=== PATIENT | female | born 2000 | race Asian ===

== ENCOUNTER 2021-11-18 23:51 | Emergency (ER) | payer OTHER ==
[~2021-11-18] VITALS: Ht 162.6 cm; Wt 68.2 kg
[2021-11-18 23:55] VITALS: BP 105/71
[2021-11-19 00:33] LABS: COVID AG,FIA SOURCE NASOPHARYNGEAL
== END 2021-11-19 01:24 | disposition home or self-care (01) ==
LOC: EMS 23:52
DX: J02.9 Acute pharyngitis, unspecified (principal); F12.90 Cannabis use, unspecified, uncomplicated; Z20.822 Contact with and (suspected) exposure to COVID-19
CPT/HCPCS: 87426; 99283; U0003